=== PATIENT | female | born 1965 ===

== ENCOUNTER 2019-01-02 15:12 | Outpatient (CLI) | payer BC ==
--- NOTE | 2019-01-02 16:33 | Ultrasound Report ---
LEFT DIGITAL DIAGNOSTIC MAMMOGRAM WITH CAD -- 01/02/2019 LEFT COMPLETE BREAST ULTRASOUND INDICATION: Breast cancer survivor status post bilateral mastectomy with implant reconstruction. She complains of medial pain in the left breast. TECHNIQUE: Digital left mammographic imaging was performed. Complete ultrasound of all four (4) quad rants was performed. This examination was interpreted with the benefit of Computer-Aided Detection (C AD) analysis. COMPARISON: None. FINDINGS: Breast Density: Only skin and subcutaneous fat. MAMMOGRAPHIC FINDINGS: There is no evidence of dominant mass, suspicious calcifications or architectu ral distortion in the left breast. ULTRASOUND FINDINGS: Complete sonographic evaluation of all 4 quadrants and retroareolar region was p erformed. No mass, cyst or shadowing in the area of pain at 9:00 9 cm from the nipple. This area is at the sternum. Intact implant. A palpable superficial oval smooth mass at 2:00 5 cm from the nipple is wedged between the skin and the implant and it measures 2.0 x 0.4 x 1.1 cm. IMPRESSION: 1. No mammographic or sonographic finding in the area of pain at 9:00 9 cm from the nipple. Recommend imaging of the sternum with either a bone scan, PET scan or CT chest for better evaluation of the st ernum. 2. A probably benign palpable 2 cm mass at 2:00 5 cm from the nipple. This likely represents benign f at necrosis or benign mass associated with the skin. Recommend short-term follow-up with ultrasound i n 3 months. Follow up recommendation: Short term follow up in 3 months. BI-RADS Category 3: Probably Benign. Followup in 3 months. A "normal" or negative report should not discourage follow up or biopsy of a clinically significant f inding. A written summary of these findings will be mailed to the patient. The patient will be entered into a mammography reporting system which will generate a reminder letter for the patient's next appointmen t at the appropriate interval. According to the [employer], yearly mammograms are recommended starting at age 40 and continuing as long as a woman is in good health. Breast MRI is recommended for women with an jose m roximately 20-25% or greater lifetime risk of breast cancer, including women with a strong family his tory of breast or ovarian cancer and women who have been treated for Hodgkin's disease. Signer Name: Vega Vaughn MD Signed: 01/02/2019 4:29 PM Workstation Name: [id number]
== END 2019-01-02 15:13 | disposition home or self-care (01) ==
LOC: SPVWC 15:12
PROVIDERS: ATTEND Family Medicine
DX: N63.21 Unspecified lump in the left breast, upper outer quadrant (principal); Z85.3 Personal history of malignant neoplasm of breast